=== PATIENT | female | born 1950 | race Hispanic/Latino ===

== ENCOUNTER → 2024-07-10 | Outpatient (CLI) | payer MEDICARE ==
--- NOTE | 2024-07-15 09:06 | HMCSR ---
APPROVED REPORT EXAM: Two-dimensional and M-mode echocardiogram with Doppler and color Doppler. INDICATION ICD: R01.1 Cardiac murmur, unspecified 2D Dimensions RVDd4.0 cmLVEF(%)59.2 (>50%)LVED Vol(simp.)82.0 mL IVSd1.0 (0.7-1.1cm)FS(%)31 %LVES Vol(simp.)35.0 mL LVDd3.9 (3.8-5.6cm)Ao Root(2D)2.8 (2.0-3.7cm)LVEF(%, simp.)57 % PWd1.1 (0.7-1.1cm)LVOT diam1.9 (1.8-2.4cm)LA ESV INDEX (BP)58.33 mL/m2 LVDs2.7 (2.5-4.0cm)IVC diam1.7 cm Aortic Valve AoV Vmax2.1 m/Nicholas Peak GR17.7 mmHgLVOT Vmax1.4 m/s AoV VTI0.4 mAo Mean GR9.5 mmHgLVOT VTI0.29 m TANK (VMAX)1.9 cm2AVA (VTI) 1.9 cm2 Mitral Valve MV E Grfc483.7 cm/sDECEL Sucm364 msMV Peak GR12 mmHg MV A Fbur520.3 cm/sP 1/2 T97 msMV Mean GR6 mmHg E/A ratio0.9MVA (PHT)2.3 cm2MVA (VTI)1.8 cm2 MR Max PG94 mmHg TDI E/E' Mvdbbx94.4E/E' Kvroqep70.0 Pulmonary Valve PV Vmax1.1 m/sPV VTI0.21 mPV Mean GR3 mmHg PV Peak GR5.0 mmHgPI End Manuela. Junaid 1.1 cm/s Tricuspid Valve TR Vmax2.7 m/sRAP (EST) 3 whJePOJH70.9 mmHg TR Peak GR29.9 mmHg Left Ventricle Left ventricular cavity size is normal. There is borderline to mild concentric left ventricular hyper trophy. LVEF is 55-60%. Grade 2 diastolic dysfunction. Right Ventricle The right ventricle is borderline dilated. The right ventricular systolic function is normal. Atria The left atrium is severely dilated. The right atrium is mildly dilated. Aortic Valve Aortic valve is trileaflet. Aortic valve is mildly calcified. Trace aortic regurgitation. Calculated aortic valve area is 1.9 cm2 with maximum pressure gradient of 17.7 mmHg and mean pressure gradient o f 9.5 mmHg. Mitral Valve Mitral valve leaflets are mildly calcified. Mitral annular calcification is mild to moderate, predomi nently posteriorly. Mitral regurgitation is mild. Calculated mitral valve area is 1.8 cm2 with maximu m pressure gradient of 11.8 mmHg and mean pressure gradient of 5.9 mmHg. Tricuspid Valve The tricuspid valve leaflets appear normal. There is mild tricuspid regurgitation. Right ventricular systolic pressure is estimated at 30-40 mmHg. Pulmonic Valve Pulmonic valve is not well visualized. There is trace pulmonic valvular regurgitation. Great Vessels The aortic root is normal in size. The IVC is normal in size and collapses >50% with inspiration. Pericardium No pericardial effusion. Other Information Quality : GoodRhythm : NSR Conclusion LVEF is 55-60%. Grade 2 diastolic dysfunction. The left atrium is severely dilated. Trace aortic regurgitation. Mitral regurgitation is mild. Mild mitral stenosis. MG 5.9 mmHg. MVA 1.8 cm2
== END | disposition home or self-care (01) ==
LOC: SHCH 15:14
PROVIDERS: ATTEND Internal Medicine
DX: I08.3 Combined rheumatic disorders of mitral, aortic and tricuspid valves (principal); R01.1 Cardiac murmur, unspecified
CPT/HCPCS: 93306